=== PATIENT | female | born 1995 | race African-American/Black ===

== ENCOUNTER 2017-06-15 23:43 | Emergency (ER) | payer SELFPAY ==
[2017-06-15 23:51] VITALS: BP 132/81; BMI 27.8
--- NOTE | 2017-06-16 00:32 | DR.GENAD ---
HPI - PCP Primary Care Physician: NFD - Complaint/Symptoms Chief Complaint Doctors Comments: Patient admits to abdominal pain for two days. LMP 11 Chief Complaint:: PAIN PRESSURE IN ABDOMINOPELVIC AREA - Nurses notes reviewed Nurses Notes Review: Yes - Source History Provided: Patient - Mode of Arrival Mode of Arrival: Ambulatory - Timing Onset of Chief Complaint: 06/15/17 PMH - PMH Past Medical History: No Past Surgical History: Yes Surgical History: - Family History History of Family Medical Conditions: No Family Medical History: Hypertension - Social History Does patient currently use any type of tobacco product: Yes Have you used tobacco products in the last 12 months: Yes Type of Tobacco Use: Cigarettes Does any household member use tobacco: No Alcohol Use: None Do you use any recreational Drugs:: No Lives With: Family Lives Where: Home - infectious screening In the last 2 months have you had wt loss of >10#?: NO Have you had fever, night sweats or hemotysis?: No Have you traveled outside the country in the last 6 months?: No Isolation: Standard ROS - Review of Systems Eyes: No Symptoms Reported ENTM: No Symptoms Reported Respiratoy: No Symptoms Reported Cardiovascular: No Symptoms Reported Gastrointestinal/Abdominal: No Symptoms Reported Genitourinary: No Symptoms Reported Neurological: No Symptoms Reported Musculoskeletal: No Symptoms Reported Integumentary: No Symptoms Reported Hematologic/Lymphatic: No Symptoms Reported Endocrine: No Symptoms Reported Psychiatric: No Symptoms Reported All Other Systems: Reviewed and Negative PE - Vital Signs Vitals: Temperature 97.5 F Pulse Rate 72 Respiratory Rate 17 Blood Pressure [Left Arm] 120/74 Blood Pressure [Right Arm] 124/71 Blood Pressure 132/81 O2 Sat by Pulse Oximetry 100 - General General Appearance: Alert, In No Apparent Distress - Head Head Exam: Normal Inspection, Atraumatic - Eyes Eye exam: Normal Appearance, PERRL, EOMI - ENT ENT Exam: Normal Exam External Ear Exam: Normal External Inspection TM/Canal Exam: Bilateral Normal Nose Exam: Normal Nose Exam Mouth Exam: Normal Inspection Throat Exam: Normal Inspection - Neck Neck Exam: Normal Inspection - Chest Chest Inspection: Normal Inspection - Respiratory Respiratory Exam: Normal Lung Sounds Bilat Respiratory Exam: Bilateral Clear to Auscultation - Cardiovascular Cardiovascular Exam: Regular Rate, Normal Rhythm - Abdominal Exam Abdominal Exam: Normal Inspection Abdominal Tenderness: negative: RUQ, RLQ, LUQ, LLQ, Epigastrium, Suprapubic, Diffuse, Mild, Moderate, Severe, Other - Extremities Extremities Exam: Normal Inspection, Full ROM - Back Back Exam: Normal Inspection, Full ROM - Neurologic Neurological Exam: Alert, Oriented X3, CN II-XII Intact - Psychiatric Psychiatric Exam: Normal Affect, Normal Mood - Skin Skin Exam: Warm, Dry, Intact Course - Reevaluation 1st: Unchanged ROR - Labs Reviewed Laboratory Results Reviewed?: Yes (UA: +leuk) Result Diagrams: 06/16/17 00:47 06/16/17 00:47 Laboratory: WBC 9.2 X10^3/uL (3.6-10.0) 06/16/17 00:47 RBC 4.57 X10^6/uL (3.5-5.4) 06/16/17 00:47 Hgb 12.2 g/dL (12.0-16.0) 06/16/17 00:47 Hct 37.1 % (36.0-47.0) 06/16/17 00:47 MCV 81.3 fL (80.0-100.0) 06/16/17 00:47 MCH 26.7 pg (27.0-34.0) L 06/16/17 00:47 MCHC 32.8 g/dL (33.0-35.0) L 06/16/17 00:47 RDW 14.0 % (11.6-16.5) 06/16/17 00:47 Plt Count 80 X10^3/uL (150.0-450.0) L 06/16/17 00:47 MPV 11.7 fL (7.4-11.0) H 06/16/17 00:47 Neut % 59.4 % (42.0-75.0) 06/16/17 00:47 Lymph % 31.7 % (21.0-51.0) 06/16/17 00:47 [place] % 5.8 % (0.0-13.0) 06/16/17 00:47 Eos % 2.7 % (0.9-2.9) 06/16/17 00:47 Baso % 0.4 % (0.2-1.0) 06/16/17 00:47 Neut # 5.5 x10^3/uL (2.2-4.8) H 06/16/17 00:47 Lymph # 2.9 X10^3/uL (1.3-2.9) 06/16/17 00:47 [place] # 0.5 x10^3/uL (0.3-0.8) 06/16/17 00:47 Eos # 0.2 x10^3/uL (0.0-0.2) 06/16/17 00:47 Baso # 0.0 X10^3/uL (0.0-0.1) 06/16/17 00:47 Absolute Nucleated RBC 0.1 /100WBC 06/16/17 00:47 Sodium 145 mmol/L (136-145) 06/16/17 00:47 Corrected Sodium TNP 06/16/17 00:47 Potassium 3.6 mmol/L (3.5-5.1) 06/16/17 00:47 Chloride 110 mmol/L (98-107) H 06/16/17 00:47 Carbon Dioxide 27.3 mmol/L (21-32) 06/16/17 00:47 BUN 7 mg/dL (7-18) 06/16/17 00:47 Creatinine 0.75 mg/dL (0.55-1.02) 06/16/17 00:47 Est GFR (MDRD) Af Amer > 60 (>60) 06/16/17 00:47 Est GFR (MDRD) Non-Af > 60 (>60) 06/16/17 00:47 Glucose 90 mg/dL (65-99) 06/16/17 00:47 Calcium 8.5 mg/dL (8.5-10.1) 06/16/17 00:47 C-Reactive Protein 1.70 mg/L (0-3.0) 06/16/17 00:47 Specimen Type Clean catch urine 06/16/17 00:40 Urine Color Yellow (YELLOW) 06/16/17 00:40 Urine Appearance Clear (CLEAR) 06/16/17 00:40 Urine pH 6.0 (5.0 - 8.0) 06/16/17 00:40 Ur Specific [place] 1.020 (1.000-1.030) 06/16/17 00:40 Urine Protein Negative (NEGATIVE) 06/16/17 00:40 Urine Glucose (UA) Negative (NEGATIVE) 06/16/17 00:40 Urine Ketones Negative (NEGATIVE) 06/16/17 00:40 Urine Occult Blood 1+ (NEGATIVE) 06/16/17 00:40 Urine Nitrite Negative (NEGATIVE) 06/16/17 00:40 Urine Bilirubin Negative (NEGATIVE) 06/16/17 00:40 Urine Urobilinogen 1+ (NORMAL) 06/16/17 00:40 Ur Leukocyte Esterase 1+ (NEGATIVE) 06/16/17 00:40 Urine RBC Rare /HPF (NEGATIVE) 06/16/17 00:40 Urine WBC 0-2 /HPF (NEGATIVE) 06/16/17 00:40 Ur Squamous Epith Cells Moderate /HPF (NEGATIVE) 06/16/17 00:40 Urine Bacteria Trace /HPF (NEGATIVE) 06/16/17 00:40 Urine Mucus Moderate /HPF (NEGATIVE) 06/16/17 00:40 Ur Culture Indicated? No/not indicated 06/16/17 00:40 - Diagnosis Discharge Problem: UTI (urinary tract infection) Qualifiers: Urinary tract infection type: acute cystitis Hematuria presence: with hematuria Qualified Code(s): N30.01 - Acute cystitis with hematuria - Discharge Plan Condition: Stable - Follow ups/Referrals Follow ups/Referrals: NFD,None [Primary Care Provider] - 3 days - Instructions
[2017-06-16 01:04] LABS: BASOPHILS % (AUTO) 0.4 % (0.2-1.0); EOSINOPHILS # (AUTO) 0.2 x10^3/uL (0.0-0.2); EOSINOPHILS % (AUTO) 2.7 % (0.9-2.9); HEMATOCRIT 37.1 % (36.0-47.0); HEMOGLOBIN 12.2 g/dL (12.0-16.0); LYMPHOCYTES # (AUTO) 2.9 X10^3/uL (1.3-2.9); LYMPHOCYTES % (AUTO) 31.7 % (21.0-51.0); MEAN CORPUSCULAR HEMOGLOBIN 26.7 pg (27.0-34.0); MEAN CORPUSCULAR HGB CONC 32.8 g/dL (33.0-35.0); MEAN CORPUSCULAR VOLUME 81.3 fL (80.0-100.0); MEAN PLATELET VOLUME 11.7 fL (7.4-11.0); MONOCYTES # (AUTO) 0.5 x10^3/uL (0.3-0.8); MONOCYTES % (AUTO) 5.8 % (0.0-13.0); NEUTROPHILS # (AUTO) 5.5 x10^3/uL (2.2-4.8); NEUTROPHILS % (AUTO) 59.4 % (42.0-75.0); PLATELET COUNT 80 X10^3/uL (150.0-450.0); RED BLOOD COUNT 4.57 X10^6/uL (3.5-5.4); WHITE BLOOD COUNT 9.2 X10^3/uL (3.6-10.0)
[2017-06-16 01:07] LABS: BLOOD UREA NITROGEN 7 mg/dL (7-18); CALCIUM 8.5 mg/dL (8.5-10.1); CARBON DIOXIDE 27.3 mmol/L (21-32); CHLORIDE 110 mmol/L (98-107); CREATININE 0.75 mg/dL (0.55-1.02); SODIUM 145 mmol/L (136-145); eGFR BLACK RACES > 60 (>60); eGFR NON BLACK RACES > 60 (>60)
[2017-06-16 01:21] LABS: BILIRUBIN,URINE NEGATIVE (NEGATIVE); BLOOD/HEMOGLOBIN,URINE 1+ (NEGATIVE); GLUCOSE, URINE NEGATIVE (NEGATIVE); KETONES,URINE NEGATIVE (NEGATIVE); LEUKOCYTE ESTERASE ,URINE 1+ (NEGATIVE); NITRITES,URINE NEGATIVE (NEGATIVE); PROTEIN,URINE NEGATIVE (NEGATIVE); UROBILINOGEN,URINE 1+ (NORMAL)
[2017-06-16] MEDS ORDERED: BENTYL CAP 10 MG PO ONE ×2 (01:26→01:27)
[2017-06-16 01:45] LABS: APPEARANCE,URINE CLEAR (CLEAR); BACTERIA,URINE TRACE /HPF (NEGATIVE); COLOR,URINE YELLOW (YELLOW); MUCUS,URINE MODERATE /HPF (NEGATIVE); RBC,URINE RARE /HPF (NEGATIVE); SQUAMOUS EPITHELIAL CELL,UR MODERATE /HPF (NEGATIVE)
== END 2017-06-16 02:36 | disposition home or self-care (01) ==
LOC: ER 23:55
DX: N30.01 Acute cystitis with hematuria (principal)
CPT/HCPCS: 36415; 80048; 81001; 85025; 86140; 99282

== ENCOUNTER 2017-07-15 03:05 | Emergency (ER) | payer SELFPAY ==
[2017-07-15 03:29] VITALS: BP 117/67; BMI 27.3
[2017-07-15 03:31] LABS: BILIRUBIN,URINE NEGATIVE (NEGATIVE); BLOOD/HEMOGLOBIN,URINE 4+ (NEGATIVE); GLUCOSE, URINE NEGATIVE (NEGATIVE); KETONES,URINE NEGATIVE (NEGATIVE); LEUKOCYTE ESTERASE ,URINE 1+ (NEGATIVE); NITRITES,URINE NEGATIVE (NEGATIVE); PROTEIN,URINE NEGATIVE (NEGATIVE); UROBILINOGEN,URINE NORMAL (NORMAL)
[2017-07-15 03:38] LABS: APPEARANCE,URINE CLEAR (CLEAR); COLOR,URINE YELLOW (YELLOW); RBC,URINE 0-3 /HPF (NEGATIVE)
[2017-07-15 03:39] LABS: BACTERIA,URINE TRACE /HPF (NEGATIVE); SQUAMOUS EPITHELIAL CELL,UR MODERATE /HPF (NEGATIVE)
[2017-07-15 03:50] LABS: SERUM PREGNANCY TEST, QUAL POSITIVE >10 mIU/mL
--- NOTE | 2017-07-15 04:08 | DR.GENAD ---
HPI - PCP Primary Care Physician: NFD - Complaint/Symptoms Chief Complaint Doctors Comments: Patient states that she is and starting with light bleeding on yesterday; Today the bleeing is a little more and the cramping is worse. She is a single . She states that she stopped smoking when she got . Chief Complaint:: PT STATES" I TOOK A HOME TEST AND I'M CRAMPING AND BLEEDING". LMP 06/10/17 - Source History Provided: Patient - Mode of Arrival Mode of Arrival: Ambulatory - Timing Onset of Chief Complaint: 07/14/17 PMH - PMH Past Medical History: No Past Surgical History: Yes Surgical History: - Family History History of Family Medical Conditions: Yes Family Medical History: Hypertension - Social History Does any household member use tobacco: Yes Alcohol Use: None Do you use any recreational Drugs:: No Lives With: Family Lives Where: Home - infectious screening In the last 2 months have you had wt loss of >10#?: NO Have you had fever, night sweats or hemotysis?: No Have you traveled outside the country in the last 6 months?: No Isolation: Standard ROS - Review of Systems Eyes: No Symptoms Reported ENTM: No Symptoms Reported Respiratoy: No Symptoms Reported Cardiovascular: No Symptoms Reported Gastrointestinal/Abdominal: No Symptoms Reported Genitourinary: No Symptoms Reported Neurological: No Symptoms Reported Musculoskeletal: No Symptoms Reported Integumentary: No Symptoms Reported Hematologic/Lymphatic: No Symptoms Reported Endocrine: No Symptoms Reported Psychiatric: No Symptoms Reported All Other Systems: Reviewed and Negative PE - Vital Signs Vitals: Temperature 97.4 F Pulse Rate 92 Respiratory Rate 18 Blood Pressure [Left Arm] 120/74 Blood Pressure [Right Arm] 124/71 Blood Pressure 117/67 O2 Sat by Pulse Oximetry 99 - General Limitations: No Limitations General Appearance: Alert, In No Apparent Distress - Head Head Exam: Normal Inspection, Atraumatic - Eyes Eye exam: Normal Appearance, PERRL, EOMI - ENT ENT Exam: Normal Exam External Ear Exam: Normal External Inspection TM/Canal Exam: Bilateral Normal Nose Exam: Normal Nose Exam Mouth Exam: Normal Inspection Throat Exam: Normal Inspection - Neck Neck Exam: Normal Inspection - Chest Chest Inspection: Normal Inspection - Respiratory Respiratory Exam: Normal Lung Sounds Bilat Respiratory Exam: Bilateral Clear to Auscultation - Cardiovascular Cardiovascular Exam: Regular Rate, Normal Rhythm - Abdominal Exam Abdominal Exam: Normal Inspection, Normal Bowel Sounds Abdominal Tenderness: negative: RUQ, RLQ, LUQ, LLQ, Epigastrium, Suprapubic, Diffuse, Mild, Moderate, Severe, Other - Extremities Extremities Exam: Normal Inspection - Back Back Exam: Normal Inspection - Neurologic Neurological Exam: Alert, Oriented X3, CN II-XII Intact - Psychiatric Psychiatric Exam: Normal Affect, Normal Mood - Skin Skin Exam: Warm, Dry, Intact ROR - Labs Reviewed Laboratory: HCG, Qual Positive >10 mIU/mL 07/15/17 03:20 Specimen Type Clean catch urine 07/15/17 03:24 Urine Color Yellow (YELLOW) 07/15/17 03:24 Urine Appearance Clear (CLEAR) 07/15/17 03:24 Urine pH 8.0 (5.0 - 8.0) 07/15/17 03:24 Ur Specific [place] 1.015 (1.000-1.030) 07/15/17 03:24 Urine Protein Negative (NEGATIVE) 07/15/17 03:24 Urine Glucose (UA) Negative (NEGATIVE) 07/15/17 03:24 Urine Ketones Negative (NEGATIVE) 07/15/17 03:24 Urine Occult Blood 4+ (NEGATIVE) 07/15/17 03:24 Urine Nitrite Negative (NEGATIVE) 07/15/17 03:24 Urine Bilirubin Negative (NEGATIVE) 07/15/17 03:24 Urine Urobilinogen Normal (NORMAL) 07/15/17 03:24 Ur Leukocyte Esterase 1+ (NEGATIVE) 07/15/17 03:24 Urine RBC 0-3 /HPF (NEGATIVE) 07/15/17 03:24 Urine WBC 0-3 /HPF (NEGATIVE) 07/15/17 03:24 Ur Squamous Epith Cells Moderate /HPF (NEGATIVE) 07/15/17 03:24 Urine Bacteria Trace /HPF (NEGATIVE) 07/15/17 03:24 Ur Culture Indicated? No/not indicated 07/15/17 03:24 - Discharge Plan Condition: Stable - Follow ups/Referrals Follow ups/Referrals: NFD,None [Primary Care Provider] - 3 days - Instructions
== END 2017-07-15 06:38 | disposition left against medical advice (07) ==
LOC: ER 03:05
DX: O20.9 Hemorrhage in early pregnancy, unspecified (principal)
CPT/HCPCS: 36415; 81001; 84702; 84703; 99282; 99283

== ENCOUNTER 2017-07-20 13:42 | Emergency (ER) | payer SELFPAY ==
[2017-07-20 13:48] VITALS: BP 127/84; BMI 27.3
--- NOTE | 2017-07-29 04:54 | DR.GENAD ---
HPI - PCP Primary Care Physician: DEBORAH - Complaint/Symptoms Chief Complaint:: PATIENT STATED THAT SHE IS BUT IS UNSURE OF HOW FAR ALONE SHE IS AT THIS TIME. SHE STATED THAT SHE HAS BEEN BLEEDING FOR 10 DAYS AND DARK RED WITH CLOTS. PATIENT STATES THAT SHE IS NOT HURTING AT THIS TIME. THE FIRST DAY OR TWO SHE CRAMPED BUT THAT IS ALL. - Source History Provided: Patient - Mode of Arrival Mode of Arrival: Ambulatory - Timing Onset of Chief Complaint: 07/10/17 PMH - PMH Past Medical History: No Past Surgical History: Yes Surgical History: - Family History History of Family Medical Conditions: Yes Family Medical History: Hypertension - Social History Does patient currently use any type of tobacco product: No Have you used tobacco products in the last 12 months: No Type of Tobacco Use: None Does any household member use tobacco: No Alcohol Use: None Do you use any recreational Drugs:: No Lives With: Family Lives Where: Home - infectious screening In the last 2 months have you had wt loss of >10#?: NO Have you had fever, night sweats or hemotysis?: No Have you traveled outside the country in the last 6 months?: No Isolation: Standard PE - Vital Signs Vitals: Pulse Rate 82 Respiratory Rate 20 Blood Pressure [Left Arm] 120/74 Blood Pressure [Right Arm] 124/71 Blood Pressure 127/84 O2 Sat by Pulse Oximetry 97 - Discharge Plan Disposition: LWBS After Triage Condition: Stable - Follow ups/Referrals Follow ups/Referrals: DEBORAH,None [Primary Care Provider] - 3 days - Instructions
== END 2017-07-20 16:12 | disposition left against medical advice (07) ==
LOC: ER 13:59
DX: O46.90 Antepartum hemorrhage, unspecified, unspecified trimester (principal)
CPT/HCPCS: 99281

== ENCOUNTER 2017-10-12 02:10 | Emergency (ER) | payer SELFPAY ==
[2017-10-12 02:15] VITALS: BMI 27.3
--- NOTE | 2017-10-12 03:06 | DR.NAUSEAF ---
HPI - Time Seen Time seen: 03:00 - Primary Care Physician Primary Care Physician: DEBORAH - HPI Comment HPI Comment: DIARRHEA HAVE RESOLVE BUT STILL V/V PERSISTS. PERIOD IS LATE. NO FEVER. NO DYSURIA. - Complaints Chief Complaint Doctors Comments: ABDOMINAL CRAMPING, N/V/D FOR A WEEKS. Chief Complaint:: N/V/D FOR A WEEK. CRAMPY STOMACH - Reviewed Nurses Notes Reviewed: Yes - Source History Provided: Patient - Mode of Arrival Mode of Arrival: Ambulatory - Timing Onset of Chief Complaint: 10/05/17 - Context Onset: Spontaneous Recent: None : Unknown History of: None - Quality Quality: Bilious - Associated Signs and Symptoms Abdominal Pain Quality: Cramping Abdominal Pain Location: RLQ, LLQ, Suprapubic Symptoms: Abdominal Pain PMH - PMH Past Medical History: No Past Surgical History: Yes Surgical History: - Family History History of Family Medical Conditions: Yes Family Medical History: Hypertension - Social History Type of Tobacco Use: Cigarettes Alcohol Use: Rarely Do you use any recreational Drugs:: Yes (THC) Lives With: Family Lives Where: Home - infectious screening Have you traveled outside the country in the last 6 months?: No Isolation: Standard ROS - Review of Systems Constitutional: No Symptoms Reported Eyes: No Symptoms Reported ENTM: No Symptoms Reported Respiratoy: No Symptoms Reported Cardiovascular: No Symptoms Reported Gastrointestinal/Abdominal: Abdominal Pain Neurological: No Symptoms Reported Musculoskeletal: No Symptoms Reported Integumentary: No Symptoms Reported Hematologic/Lymphatic: No Symptoms Reported Endocrine: No Symptoms Reported All Other Systems: Reviewed and Negative PE - Vital Signs Vitals: Temperature 97.2 F Pulse Rate [Left Brachial] 76 Pulse Rate 86 Respiratory Rate 18 Blood Pressure [Left Arm] 123/60 Blood Pressure [Right Arm] 124/71 Blood Pressure 118/61 O2 Sat by Pulse Oximetry 100 - General Limitations: No Limitations General Appearance: Alert - Head Head Exam: Normal Inspection - Eyes Eye exam: Normal Appearance - ENT ENT Exam: Normal External Ear Exam - Neck Neck Exam: Trachea Midline - Chest Chest Inspection: Symmetric Chest Wall Rise - Respiratory Respiratory Exam: Normal Lung Sounds Bilat Respiratory Exam: Bilateral Clear to Auscultation - Cardiovascular Cardiovascular Exam: Regular Rate, Normal Rhythm, Normal Heart Sounds - Abdominal Exam Abdominal Exam: Normal Bowel Sounds, Soft, Tenderness Abdominal Tenderness: RLQ, LLQ - Rectal Rectal Exam: Deferred - External Exam: Female: Deferred : Bimanual Exam (female): Deferred - Extremities Extremities Exam: Normal Inspection - Back Back Exam: Normal Inspection - Neurologic Neurological Exam: Alert, Oriented X3 - Psychiatric Psychiatric Exam: Normal Affect, Normal Mood - Skin Skin Exam: Normal Color MDM - Differential Diagnosis Differential Diagnosis: Considerations may Include:: Bowel Obstruction, Gastritis, Gastroenteritis, , Urinary Tract Infection, Urolithiasis Course - Treatment Treatment: SEE ORDERS. - Education/Counseling Education/Counseling: Patient, Education Educated On: Diagnosis, Needs for Follow Up ROR - Labs Reviewed Laboratory Results Reviewed?: Yes Result Diagrams: 10/12/17 03:14 10/12/17 03:14 Laboratory: WBC 11.1 X10^3/uL (3.6-10.0) H 10/12/17 03:14 RBC 4.52 X10^6/uL (3.5-5.4) 10/12/17 03:14 Hgb 12.0 g/dL (12.0-16.0) 10/12/17 03:14 Hct 36.1 % (36.0-47.0) 10/12/17 03:14 MCV 79.9 fL (80.0-100.0) L 10/12/17 03:14 MCH 26.5 pg (27.0-34.0) L 10/12/17 03:14 MCHC 33.2 g/dL (33.0-35.0) 10/12/17 03:14 RDW 12.8 % (11.6-16.5) 10/12/17 03:14 Plt Count 95 X10^3/uL (150.0-450.0) L 10/12/17 03:14 MPV 11.5 fL (7.4-11.0) H 10/12/17 03:14 Neut % (Auto) 72.5 % (42.0-75.0) 10/12/17 03:14 Lymph % (Auto) 20.6 % (21.0-51.0) L 10/12/17 03:14 [place] % (Auto) 4.8 % (0.0-13.0) 10/12/17 03:14 Eos % (Auto) 1.5 % (0.9-2.9) 10/12/17 03:14 Baso % (Auto) 0.6 % (0.2-1.0) 10/12/17 03:14 Neut # (Auto) 8.0 x10^3/uL (2.2-4.8) H 10/12/17 03:14 Lymph # (Auto) 2.3 X10^3/uL (1.3-2.9) 10/12/17 03:14 [place] # (Auto) 0.5 x10^3/uL (0.3-0.8) 10/12/17 03:14 Eos # (Auto) 0.2 x10^3/uL (0.0-0.2) 10/12/17 03:14 Baso # (Auto) 0.1 X10^3/uL (0.0-0.1) 10/12/17 03:14 Absolute Nucleated RBC 0.0 /100WBC 10/12/17 03:14 Sodium 135 mmol/L (136-145) L 10/12/17 03:14 Corrected Sodium TNP 10/12/17 03:14 Potassium 4.1 mmol/L (3.5-5.1) 10/12/17 03:14 Chloride 103 mmol/L (98-107) 10/12/17 03:14 Carbon Dioxide 21.2 mmol/L (21-32) 10/12/17 03:14 BUN 8 mg/dL (7-18) 10/12/17 03:14 Creatinine 0.49 mg/dL (0.55-1.02) L 10/12/17 03:14 Est GFR (MDRD) Af Amer > 60 (>60) 10/12/17 03:14 Est GFR (MDRD) Non-Af > 60 (>60) 10/12/17 03:14 Glucose 81 mg/dL (65-99) 10/12/17 03:14 Calcium 8.6 mg/dL (8.5-10.1) 10/12/17 03:14 Corrected Calcium TNP 10/12/17 03:14 Total Bilirubin 0.40 mg/dL (0.2-1.0) 10/12/17 03:14 AST 13 Units/L (15-37) L 10/12/17 03:14 ALT 17 Units/L (12-78) 10/12/17 03:14 Alkaline Phosphatase 61 Units/L (46-116) 10/12/17 03:14 Total Protein 8.1 g/dL (6.4-8.2) 10/12/17 03:14 Albumin 3.9 g/dL (3.4-5.0) 10/12/17 03:14 Globulin 4.2 g/dL (2.5-4.5) 10/12/17 03:14 Albumin/Globulin Ratio 0.9 Ratio (1.1-2.1) L 10/12/17 03:14 Amylase 46 Units/L (25-115) 10/12/17 03:14 Lipase 101 Units/L (73-393) 10/12/17 03:14 HCG, Qual Positive >10 mIU/mL 10/12/17 03:14 HCG, Quant 606004 mIU/mL (0-6) H 10/12/17 03:14 Specimen Type Clean catch urine 10/12/17 03:35 Urine Color Yellow (YELLOW) 10/12/17 03:35 Urine Appearance Cloudy (CLEAR) 10/12/17 03:35 Urine pH 6.0 (5.0 - 8.0) 10/12/17 03:35 Ur Specific [place] 1.025 (1.000-1.030) 10/12/17 03:35 Urine Protein 2+ (NEGATIVE) 10/12/17 03:35 Urine Glucose (UA) Negative (NEGATIVE) 10/12/17 03:35 Urine Ketones 4+ (NEGATIVE) 10/12/17 03:35 Urine Occult Blood Negative (NEGATIVE) 10/12/17 03:35 Urine Nitrite Negative (NEGATIVE) 10/12/17 03:35 Urine Bilirubin Negative (NEGATIVE) 10/12/17 03:35 Urine Urobilinogen 1+ (NORMAL) 10/12/17 03:35 Ur Leukocyte Esterase 1+ (NEGATIVE) 10/12/17 03:35 Urine RBC None seen /HPF (NONE SEEN) 10/12/17 03:35 Urine WBC 1-3 /HPF (NONE SEEN) 10/12/17 03:35 Ur Squamous Epith Cells Many /HPF (NEGATIVE) 10/12/17 03:35 Amorphous Sediment 1+ /HPF (NEGATIVE) 10/12/17 03:35 Urine Bacteria Trace /HPF (NEGATIVE) 10/12/17 03:35 Urine Mucus Many /HPF (NEGATIVE) 10/12/17 03:35 Urine Trichomonas Few /HPF (NEGATIVE) 10/12/17 03:35 Ur Culture Indicated? No/not indicated 10/12/17 03:35 - XRAY XRAY Interpreted by: Radiologist XRAY Findings: REPORT DISCUSS WITH PATIENT. - Diagnosis Discharge Problem: Nausea/vomiting in , Abdominal pain during in first trimester Qualifiers: Weeks of gestation: less than 8 weeks Qualified Code(s): Z3A.01 - Less than 8 weeks gestation of - Discharge Plan Disposition: HOME, SELF-CARE Condition: Stable Prescriptions: Promethazine HCl [PHENERGAN TAB 25 MG *] 25 mg PO Q6H PRN #12 tab PRN Reason: Nausea/Vomiting - Follow ups/Referrals Follow ups/Referrals: NFD,None [Primary Care Provider] - 3 days ROSA GREER [STAFF PHYSICIAN] - 2 days - Instructions Instructions: Abdominal Pain During , [id number], First Trimester of , [id number], Nausea and Vomiting, Adult, [id number] Additional Instructions: RETURN TO ED IF WORSE.
[2017-10-12 03:26] LABS: BASOPHILS # (AUTO) 0.1 X10^3/uL (0.0-0.1); BASOPHILS % (AUTO) 0.6 % (0.2-1.0); EOSINOPHILS # (AUTO) 0.2 x10^3/uL (0.0-0.2); EOSINOPHILS % (AUTO) 1.5 % (0.9-2.9); HEMATOCRIT 36.1 % (36.0-47.0); LYMPHOCYTES # (AUTO) 2.3 X10^3/uL (1.3-2.9); LYMPHOCYTES % (AUTO) 20.6 % (21.0-51.0); MEAN CORPUSCULAR HEMOGLOBIN 26.5 pg (27.0-34.0); MEAN CORPUSCULAR HGB CONC 33.2 g/dL (33.0-35.0); MEAN CORPUSCULAR VOLUME 79.9 fL (80.0-100.0); MEAN PLATELET VOLUME 11.5 fL (7.4-11.0); MONOCYTES # (AUTO) 0.5 x10^3/uL (0.3-0.8); MONOCYTES % (AUTO) 4.8 % (0.0-13.0); NEUTROPHILS % (AUTO) 72.5 % (42.0-75.0); PLATELET COUNT 95 X10^3/uL (150.0-450.0); RED BLOOD COUNT 4.52 X10^6/uL (3.5-5.4); RED CELL DISTRIBUTION WIDTH 12.8 % (11.6-16.5); WHITE BLOOD COUNT 11.1 X10^3/uL (3.6-10.0)
[2017-10-12 03:33] LABS: ALANINE AMINOTRANSFERASE 17 Units/L (12-78); ALBUMIN 3.9 g/dL (3.4-5.0); ALKALINE PHOSPHATASE 61 Units/L (46-116); AMYLASE 46 Units/L (25-115); ASPARTATE AMINO TRANSFERASE 13 Units/L (15-37); BLOOD UREA NITROGEN 8 mg/dL (7-18); CALCIUM 8.6 mg/dL (8.5-10.1); CARBON DIOXIDE 21.2 mmol/L (21-32); CHLORIDE 103 mmol/L (98-107); CREATININE 0.49 mg/dL (0.55-1.02); LIPASE 101 Units/L (73-393); SODIUM 135 mmol/L (136-145); TOTAL PROTEIN 8.1 g/dL (6.4-8.2); eGFR BLACK RACES > 60 (>60); eGFR NON BLACK RACES > 60 (>60)
[2017-10-12 03:38] LABS: SERUM PREGNANCY TEST, QUAL POSITIVE >10 mIU/mL
[2017-10-12 04:03] LABS: BILIRUBIN,URINE NEGATIVE (NEGATIVE); BLOOD/HEMOGLOBIN,URINE NEGATIVE (NEGATIVE); GLUCOSE, URINE NEGATIVE (NEGATIVE); KETONES,URINE 4+ (NEGATIVE); LEUKOCYTE ESTERASE ,URINE 1+ (NEGATIVE); NITRITES,URINE NEGATIVE (NEGATIVE); PROTEIN,URINE 2+ (NEGATIVE); UROBILINOGEN,URINE 1+ (NORMAL)
[2017-10-12 04:11] LABS: APPEARANCE,URINE CLOUDY (CLEAR); COLOR,URINE YELLOW (YELLOW)
[2017-10-12 04:12] LABS: AMORPHOUS SEDIMENT,UR 1+ /HPF (NEGATIVE); BACTERIA,URINE TRACE /HPF (NEGATIVE); MUCUS,URINE MANY /HPF (NEGATIVE); RBC,URINE NONE SEEN /HPF (NONE SEEN); SQUAMOUS EPITHELIAL CELL,UR MANY /HPF (NEGATIVE); TRICHOMONAS,URINE FEW /HPF (NEGATIVE)
--- NOTE | 2017-10-12 05:07 | US ---
HISTORY: with nausea and vomiting Study: First trimester OB ultrasound Comparison: None Technique: Multiple grayscale ultrasound images of the pelvis were obtained. Findings: There are 2 viable intrauterine gestations. The gestational sac of baby A measures 3 cm and the yolk sac measures 0.3 cm. [place]-rump length of ba by A is 1.1 cm, compatible with an average gestational age of 7 weeks, 1 day. heart tones of ba by A measure 154 beats per minute. The gestational sac of baby B measures 3 cm and the yolk sac measures 0.5 cm. [place]-rump length of ba by B is 1.1 cm, compatible with an average gestational age of 7 weeks, 1day. heart tones of bab y B measure 159 beats per minute. The right ovary is normal in appearance, measuring 3.0 x 2.6 x 3.2 cm. No color Doppler images of the right ovary were obtained by the sound engineering technician. The left ovary was not identified during the examinati on. No significant free fluid is identified within the pelvis. IMPRESSION: Two viable intrauterine gestations with an average ultrasound age of 7 weeks, 1 day for both gestatio ns, corresponding to an estimated date of delivery of 05/26/2018. No acute abnormality identified, as visualized. Nonvisualization of the left ovary. Normal right ovary. Reported By:
[2017-10-12 05:29] VITALS: BP 123/60
== END 2017-10-12 05:29 | disposition home or self-care (01) ==
LOC: ER 02:10
DX: R11.2 Nausea with vomiting, unspecified (principal); R10.84 Generalized abdominal pain; Z3A.01 Less than 8 weeks gestation of pregnancy
CPT/HCPCS: 36415; 76801; 80053; 81001; 82150; 83690; 84702; 84703; 85025; 99284

== ENCOUNTER 2017-12-15 01:15 | Emergency (ER) | payer SELFPAY ==
[2017-12-15 01:27] VITALS: BMI 27.6
--- NOTE | 2017-12-15 01:31 | DR.GENAD ---
HPI - PCP Primary Care Physician: LEA - HPI Comment HPI Comment: PATIENT DENIES DYSURIA. TWIN HAVE BEING ESTABLISH BY US ON 10/12/2017. DIS HAVE SEX TONIGHT. NO VAGINAL DISCHARGE REPORTED. NO FEVER. - Complaint/Symptoms Chief Complaint Doctors Comments: PATIENT IS 13 WEEKS AND NOTED VAGINAL BLEEDING TONIGHT AND LOWER ABDOMINAL PAIN. Chief Complaint:: COMPLAINTS OF A "GUSH OF BLOOD FROM VAGINA" DUE DATE 05/26/18 , PT STATES SHE DID HAVE SEX PRODUCTION CORRUGATOR AND STILL BLEEDING CURRENTLY. - Nurses notes reviewed Nurses Notes Review: Yes - Source History Provided: Patient - Mode of Arrival Mode of Arrival: Ambulatory - Timing Onset of Chief Complaint: 12/15/17 Came on: Suddenly - Duration Duration: Constant Duration: Hours - Severity Severity: Moderate PMH - PMH Past Medical History: No Past Surgical History: Yes Surgical History: Past Surgical History Comment: 4 SECTIONS - Family History History of Family Medical Conditions: No Family Medical History: Hypertension - Social History Does patient currently use any type of tobacco product: Yes Have you used tobacco products in the last 12 months: Yes Type of Tobacco Use: Cigarettes Does any household member use tobacco: No Alcohol Use: None Do you use any recreational Drugs:: No Lives With: Spouse Lives Where: Home - infectious screening In the last 2 months have you had wt loss of >10#?: NO Have you had fever, night sweats or hemotysis?: No Have you traveled outside the country in the last 6 months?: No Isolation: Standard ROS - Review of Systems Constitutional: No Symptoms Reported Eyes: No Symptoms Reported ENTM: No Symptoms Reported Respiratoy: No Symptoms Reported Cardiovascular: No Symptoms Reported Gastrointestinal/Abdominal: Abdominal Pain Genitourinary: Pain, Bleeding Neurological: No Symptoms Reported Musculoskeletal: No Symptoms Reported Integumentary: No Symptoms Reported Hematologic/Lymphatic: No Symptoms Reported Endocrine: No Symptoms Reported All Other Systems: Reviewed and Negative PE - Vital Signs Vitals: Temperature 98.0 F Pulse Rate [Left Brachial] 76 Pulse Rate 92 Respiratory Rate 16 Blood Pressure [Left Arm] 112/78 Blood Pressure [Right Arm] 124/71 Blood Pressure 113/56 O2 Sat by Pulse Oximetry 99 - General Limitations: No Limitations General Appearance: Alert - Head Head Exam: Normal Inspection - Eyes Eye exam: Normal Appearance - ENT ENT Exam: Normal External Ear Exam External Ear Exam: Normal External Inspection TM/Canal Exam: Bilateral Normal Mouth Exam: Normal Inspection Throat Exam: Normal Inspection - Neck Neck Exam: Normal Inspection - Chest Chest Inspection: Symmetric Chest Wall Rise - Respiratory Respiratory Exam: Normal Lung Sounds Bilat Respiratory Exam: Bilateral Clear to Auscultation - Cardiovascular Cardiovascular Exam: Regular Rate, Normal Rhythm, Normal Heart Sounds - Abdominal Exam Abdominal Exam: Normal Bowel Sounds, Soft, Tenderness Abdominal Tenderness: RLQ, LLQ, Suprapubic - Extremities Extremities Exam: Normal Inspection - Back Back Exam: Normal Inspection - Neurologic Neurological Exam: Alert, Oriented X3 - Psychiatric Psychiatric Exam: Anxious - Skin Skin Exam: Normal Color MDM - Additional Information Additional Information Obtained From: Family - Differential Diagnosis Differential Diagnosis: THRATENED MISCARRIAGE, UTI, ABD PAIN 2ND TRIMESTER, VAG BLEEDING 2ND TRIMES Course - Treatment Treatment: SEE ORDERS. - Education/Counseling Education/Counseling: Patient, Family, Education Educated On: Diagnosis, Needs for Follow Up ROR - Labs Reviewed Laboratory Results Reviewed?: Yes Result Diagrams: 12/15/17 01:46 Laboratory: WBC 12.3 X10^3/uL (3.6-10.0) H 12/15/17 01:46 RBC 3.61 X10^6/uL (3.5-5.4) 12/15/17 01:46 Hgb 9.7 g/dL (12.0-16.0) L 12/15/17 01:46 Hct 28.6 % (36.0-47.0) L 12/15/17 01:46 MCV 79.2 fL (80.0-100.0) L 12/15/17 01:46 MCH 27.0 pg (27.0-34.0) 12/15/17 01:46 MCHC 34.1 g/dL (33.0-35.0) 12/15/17 01:46 RDW 13.7 % (11.6-16.5) 12/15/17 01:46 Plt Count 129 X10^3/uL (150.0-450.0) L 12/15/17 01:46 MPV 11.1 fL (7.4-11.0) H 12/15/17 01:46 Neut % (Auto) 73.2 % (42.0-75.0) 12/15/17 01:46 Lymph % (Auto) 19.7 % (21.0-51.0) L 12/15/17 01:46 [place] % (Auto) 4.8 % (0.0-13.0) 12/15/17 01:46 Eos % (Auto) 2.0 % (0.9-2.9) 12/15/17 01:46 Baso % (Auto) 0.3 % (0.2-1.0) 12/15/17 01:46 Neut # (Auto) 9.0 x10^3/uL (2.2-4.8) H 12/15/17 01:46 Lymph # (Auto) 2.4 X10^3/uL (1.3-2.9) 12/15/17 01:46 [place] # (Auto) 0.6 x10^3/uL (0.3-0.8) 12/15/17 01:46 Eos # (Auto) 0.2 x10^3/uL (0.0-0.2) 12/15/17 01:46 Baso # (Auto) 0.0 X10^3/uL (0.0-0.1) 12/15/17 01:46 Absolute Nucleated RBC 0.0 /100WBC 12/15/17 01:46 HCG, Quant [id number] mIU/mL (0-6) H 12/15/17 01:46 Specimen Type Clean catch urine 12/15/17 02:26 Urine Color Yellow (YELLOW) 12/15/17 02:26 Urine Appearance Slightly hazy (CLEAR) 12/15/17 02:26 Urine pH 8.0 (5.0 - 8.0) 12/15/17 02:26 Ur Specific [place] 1.010 (1.000-1.030) 12/15/17 02:26 Urine Protein 1+ (NEGATIVE) 12/15/17 02:26 Urine Glucose (UA) Negative (NEGATIVE) 12/15/17 02:26 Urine Ketones Negative (NEGATIVE) 12/15/17 02:26 Urine Occult Blood 3+ (NEGATIVE) 12/15/17 02:26 Urine Nitrite Negative (NEGATIVE) 12/15/17 02:26 Urine Bilirubin Negative (NEGATIVE) 12/15/17 02:26 Urine Urobilinogen Normal (NORMAL) 12/15/17 02:26 Ur Leukocyte Esterase 1+ (NEGATIVE) 12/15/17 02:26 Urine RBC 5-10 /HPF (NONE SEEN) 12/15/17 02:26 Urine WBC 5-10 /HPF (NONE SEEN) 12/15/17 02:26 Ur Squamous Epith Cells Rare /HPF (NEGATIVE) 12/15/17 02:26 Urine Bacteria 1+ /HPF (NEGATIVE) 12/15/17 02:26 Urine Mucus Few /HPF (NEGATIVE) 12/15/17 02:26 Ur Culture Indicated? Yes/culture set up 12/15/17 02:26 Blood Type O POSITIVE 12/15/17 01:46 - Diagnosis Discharge Problem: Vaginal bleeding before 22 weeks gestation, Abdominal pain affecting , Threatened miscarriage UTI (urinary tract infection) Qualifiers: Urinary tract infection type: site unspecified Hematuria presence: with hematuria Qualified Code(s): N39.0 - Urinary tract infection, site not specified - Discharge Plan Disposition: HOME, SELF-CARE Condition: Stable Prescriptions: Nitrofurantoin Macro [Macrobid Cap 100 mg Ext Rel] 100 mg PO BID #14 cap - Follow ups/Referrals Follow ups/Referrals: Georgina Henry MD [Primary Care Provider] - 12/15/17 - Instructions Instructions: Abdominal Pain During , [id number], Urinary Tract Infection, Adult, [id number], and Urinary Tract Infection, Pelvic Rest, Vaginal Bleeding During , Second Trimester, [id number] Additional Instructions: RETURN TO ED IF WORSE. SEE OB DR. BURGESS AM.
[2017-12-15 02:09] LABS: BASOPHILS % (AUTO) 0.3 % (0.2-1.0); EOSINOPHILS # (AUTO) 0.2 x10^3/uL (0.0-0.2); HEMATOCRIT 28.6 % (36.0-47.0); HEMOGLOBIN 9.7 g/dL (12.0-16.0); LYMPHOCYTES # (AUTO) 2.4 X10^3/uL (1.3-2.9); LYMPHOCYTES % (AUTO) 19.7 % (21.0-51.0); MEAN CORPUSCULAR HGB CONC 34.1 g/dL (33.0-35.0); MEAN CORPUSCULAR VOLUME 79.2 fL (80.0-100.0); MEAN PLATELET VOLUME 11.1 fL (7.4-11.0); MONOCYTES # (AUTO) 0.6 x10^3/uL (0.3-0.8); MONOCYTES % (AUTO) 4.8 % (0.0-13.0); NEUTROPHILS % (AUTO) 73.2 % (42.0-75.0); PLATELET COUNT 129 X10^3/uL (150.0-450.0); RED BLOOD COUNT 3.61 X10^6/uL (3.5-5.4); RED CELL DISTRIBUTION WIDTH 13.7 % (11.6-16.5); WHITE BLOOD COUNT 12.3 X10^3/uL (3.6-10.0)
[2017-12-15 02:34] LABS: BILIRUBIN,URINE NEGATIVE (NEGATIVE); BLOOD/HEMOGLOBIN,URINE 3+ (NEGATIVE); GLUCOSE, URINE NEGATIVE (NEGATIVE); KETONES,URINE NEGATIVE (NEGATIVE); LEUKOCYTE ESTERASE ,URINE 1+ (NEGATIVE); NITRITES,URINE NEGATIVE (NEGATIVE); PROTEIN,URINE 1+ (NEGATIVE); UROBILINOGEN,URINE NORMAL (NORMAL)
[2017-12-15 02:53] LABS: APPEARANCE,URINE SLIGHTLY HAZY (CLEAR); BACTERIA,URINE 1+ /HPF (NEGATIVE); COLOR,URINE YELLOW (YELLOW); MUCUS,URINE FEW /HPF (NEGATIVE); SQUAMOUS EPITHELIAL CELL,UR RARE /HPF (NEGATIVE)
[2017-12-15] MEDS ORDERED: MACROBID CAP 100 MG EXT REL PO ONE ×2 (03:12→03:14)
[2017-12-15 03:18] VITALS: BP 112/78
== END 2017-12-15 03:18 | disposition home or self-care (01) ==
LOC: ER 01:15
DX: O46.90 Antepartum hemorrhage, unspecified, unspecified trimester (principal); R10.84 Generalized abdominal pain; O20.0 Threatened abortion; N39.0 Urinary tract infection, site not specified; Z3A.14 14 weeks gestation of pregnancy
CPT/HCPCS: 36415; 81001; 84702; 85025; 86900; 86901; 87086; 99283; 99284

== ENCOUNTER 2017-12-21 04:47 | Inpatient (IN) ==
[2017-12-21] MEDS ORDERED: D5 1/2 NS 1000 ML 1,000 ML IV ONE (05:04)
[2017-12-21] MEDS ORDERED: D5 1/2 NS 1000 ML 1,000 ML IV SCH ×2 (05:05→08:00)
[2017-12-21 05:16] VITALS: BMI 27.3
--- NOTE | 2017-12-21 05:20 | DR.VAG ---
HPI - Time Seen Time seen: 05:05 - PCP Primary Care Physician: NONE - Complaint Chief Complaint:: PATIENT IS A AT 16 WEEKS AND 6 DAYS WITH PREVIOUS C/S X4. PATIENT STATES THAT SHE STARTED WITH ABDOMINAL PAIN AROUND 0100 THIS MORNING THAT HAS BECAME WORSE. PATIENT STATES THAT SHE STARTED BLEEDING ABOUT 30 MINUTES PRIOR TO CALLING EMS AND SHE PASSED SEVERAL LARGE CLOTS. Chief Complaint Doctors Comments: Hx. noted per nurse's note. Pt. states she started bleeding again at about 0100 hrs this a.m. She is passing blood clots. She also has associated pelvic and vaginal cramps. Similar episode was noted on 12/15/17, she was treated and released then. That episode was thought to have been triggered by recent sex. She states her last intercourse was 1 week ago. She has been having intermittent vaginal bleeding since onset of this . She denies LBP. Self Treatment fo Chief Complaint: PATIENT STATES THAT SHE WAS SEEN IN ER ON FOR BLEEDING AND WAS DIAGNOSED WITH A UTI. - Reviewed Nurses Notes Review: Yes - Source History Provided: Patient - Mode of Arrival Mode of Arrival: EMS - Timing Onset of Chief Complaint: 12/21/17 PMH - PMH Past Medical History: No Past Surgical History: Yes Surgical History: - Family History History of Family Medical Conditions: No Family Medical History: Hypertension - Social History Does patient currently use any type of tobacco product: Yes Have you used tobacco products in the last 12 months: Yes Type of Tobacco Use: Cigarettes Does any household member use tobacco: Yes Alcohol Use: None Do you use any recreational Drugs:: No Lives With: Family Lives Where: Home - infectious screening In the last 2 months have you had wt loss of >10#?: NO Have you had fever, night sweats or hemotysis?: No Have you traveled outside the country in the last 6 months?: No Isolation: Standard ROS - Review of Systems Constitutional: No Symptoms Reported Eyes: No Symptoms Reported ENTM: No Symptoms Reported Respiratoy: No Symptoms Reported Cardiovascular: No Symptoms Reported Gastrointestinal/Abdominal: No Symptoms Reported Genitourinary: Other (vaginal bleed/passage of blood clots) Neurological: No Symptoms Reported Musculoskeletal: No Symptoms Reported Integumentary: No Symptoms Reported Hematologic/Lymphatic: No Symptoms Reported Endocrine: No Symptoms Reported Psychiatric: No Symptoms Reported All Other Systems: Reviewed and Negative PE - Vital Signs Vitals: Temperature 99.2 F Pulse Rate 81 Respiratory Rate 22 Blood Pressure [Left Arm] 112/78 Blood Pressure [Right Arm] 124/71 Blood Pressure 136/82 O2 Sat by Pulse Oximetry 100 - General Limitations: No Limitations General Appearance: Alert, In Distress (pain related) - Head Head Exam: Normal Inspection - Eyes Eye exam: Normal Appearance - ENT ENT Exam: Normal Exam - Neck Neck Exam: Normal Inspection - Chest Chest Inspection: Normal Inspection, Symmetric Chest Wall Rise - Respiratory Respiratory Exam: Normal Lung Sounds Bilat - Cardiovascular Cardiovascular Exam: Regular Rate, Normal Rhythm, +S1, +S2 - Abdominal Exam Abdominal Exam: Normal Inspection, Normal Bowel Sounds, Soft - Rectal Rectal Exam: Deferred - Genitourinary External Exam: Female: Deferred - Extremities Extremities Exam: Normal Inspection - Neurologic Neurological Exam: Alert, Oriented X3 - Psychiatric Psychiatric Exam: Normal Affect - Skin Skin Exam: Warm, Dry, Intact, Normal Color Course - Reevaluation 1st: Unchanged - Education/Counseling Education/Counseling: Patient, Education, Counseling Educated On: Treatment, Diagnosis, Prognosis, Needs for Follow Up ROR - Labs Reviewed Result Diagrams: 12/21/17 05:00 12/21/17 05:00 Laboratory: WBC 11.0 X10^3/uL (3.6-10.0) H 12/21/17 05:00 RBC 3.76 X10^6/uL (3.5-5.4) 12/21/17 05:00 Hgb 10.3 g/dL (12.0-16.0) L 12/21/17 05:00 Hct 30.2 % (36.0-47.0) L 12/21/17 05:00 MCV 80.4 fL (80.0-100.0) 12/21/17 05:00 MCH 27.5 pg (27.0-34.0) 12/21/17 05:00 MCHC 34.2 g/dL (33.0-35.0) 12/21/17 05:00 RDW 14.3 % (11.6-16.5) 12/21/17 05:00 Plt Count 114 X10^3/uL (150.0-450.0) L 12/21/17 05:00 MPV 11.3 fL (7.4-11.0) H 12/21/17 05:00 Neut % (Auto) 69.7 % (42.0-75.0) 12/21/17 05:00 Lymph % (Auto) 21.8 % (21.0-51.0) 12/21/17 05:00 [place] % (Auto) 5.8 % (0.0-13.0) 12/21/17 05:00 Eos % (Auto) 2.4 % (0.9-2.9) 12/21/17 05:00 Baso % (Auto) 0.3 % (0.2-1.0) 12/21/17 05:00 Neut # (Auto) 7.7 x10^3/uL (2.2-4.8) H 12/21/17 05:00 Lymph # (Auto) 2.4 X10^3/uL (1.3-2.9) 12/21/17 05:00 [place] # (Auto) 0.6 x10^3/uL (0.3-0.8) 12/21/17 05:00 Eos # (Auto) 0.3 x10^3/uL (0.0-0.2) H 12/21/17 05:00 Baso # (Auto) 0.0 X10^3/uL (0.0-0.1) 12/21/17 05:00 Absolute Nucleated RBC 0.0 /100WBC 12/21/17 05:00 Sodium 136 mmol/L (136-145) 12/21/17 05:00 Corrected Sodium TNP 12/21/17 05:00 Potassium 3.6 mmol/L (3.5-5.1) 12/21/17 05:00 Chloride 103 mmol/L (98-107) 12/21/17 05:00 Carbon Dioxide 20.1 mmol/L (21-32) L 12/21/17 05:00 BUN 7 mg/dL (7-18) 12/21/17 05:00 Creatinine 0.56 mg/dL (0.55-1.02) 12/21/17 05:00 Est GFR (MDRD) Af Amer > 60 (>60) 12/21/17 05:00 Est GFR (MDRD) Non-Af > 60 (>60) 12/21/17 05:00 Glucose 92 mg/dL (65-99) 12/21/17 05:00 Calcium 8.6 mg/dL (8.5-10.1) 12/21/17 05:00 Corrected Calcium 9.6 mg/dL (8.5-10.1) 12/21/17 05:00 Total Bilirubin 0.20 mg/dL (0.2-1.0) 12/21/17 05:00 AST 12 Units/L (15-37) L 12/21/17 05:00 ALT 9 Units/L (12-78) L 12/21/17 05:00 Alkaline Phosphatase 67 Units/L (46-116) 12/21/17 05:00 Total Protein 7.2 g/dL (6.4-8.2) 12/21/17 05:00 Albumin 2.8 g/dL (3.4-5.0) L 12/21/17 05:00 Globulin 4.4 g/dL (2.5-4.5) 12/21/17 05:00 Albumin/Globulin Ratio 0.6 Ratio (1.1-2.1) L 12/21/17 05:00 HCG, Quant 890 mIU/mL (0-6) H 12/21/17 05:00 - Diagnosis Discharge Problem: Abdominal pain during in second trimester, Vaginal bleeding before 22 weeks gestation, Threatened miscarriage, demise before 20 weeks with retention of fetus - Discharge Plan Disposition: 05 XFER OTHER Condition: Stable - Follow ups/Referrals - Instructions Additional Notes - Additional Notes Additional Notes: Retroactive review of her HcG serially is as follows: - [id number]. 12/15/17- [id number]. Today- 890
[2017-12-21 05:22] LABS: BASOPHILS % (AUTO) 0.3 % (0.2-1.0); EOSINOPHILS # (AUTO) 0.3 x10^3/uL (0.0-0.2); EOSINOPHILS % (AUTO) 2.4 % (0.9-2.9); HEMATOCRIT 30.2 % (36.0-47.0); HEMOGLOBIN 10.3 g/dL (12.0-16.0); LYMPHOCYTES # (AUTO) 2.4 X10^3/uL (1.3-2.9); LYMPHOCYTES % (AUTO) 21.8 % (21.0-51.0); MEAN CORPUSCULAR HEMOGLOBIN 27.5 pg (27.0-34.0); MEAN CORPUSCULAR HGB CONC 34.2 g/dL (33.0-35.0); MEAN CORPUSCULAR VOLUME 80.4 fL (80.0-100.0); MEAN PLATELET VOLUME 11.3 fL (7.4-11.0); MONOCYTES # (AUTO) 0.6 x10^3/uL (0.3-0.8); MONOCYTES % (AUTO) 5.8 % (0.0-13.0); NEUTROPHILS # (AUTO) 7.7 x10^3/uL (2.2-4.8); NEUTROPHILS % (AUTO) 69.7 % (42.0-75.0); PLATELET COUNT 114 X10^3/uL (150.0-450.0); RED BLOOD COUNT 3.76 X10^6/uL (3.5-5.4); RED CELL DISTRIBUTION WIDTH 14.3 % (11.6-16.5)
[2017-12-21 05:29] LABS: ALANINE AMINOTRANSFERASE 9 Units/L (12-78); ALBUMIN 2.8 g/dL (3.4-5.0); ALKALINE PHOSPHATASE 67 Units/L (46-116); ASPARTATE AMINO TRANSFERASE 12 Units/L (15-37); BLOOD UREA NITROGEN 7 mg/dL (7-18); CALCIUM 8.6 mg/dL (8.5-10.1); CARBON DIOXIDE 20.1 mmol/L (21-32); CHLORIDE 103 mmol/L (98-107); COR CA(FOR HYPOALB) 9.6 mg/dL (8.5-10.1); CREATININE 0.56 mg/dL (0.55-1.02); SODIUM 136 mmol/L (136-145); TOTAL PROTEIN 7.2 g/dL (6.4-8.2); eGFR NON BLACK RACES > 60 (>60)
[2017-12-21 06:05] LABS: BILIRUBIN,URINE NEGATIVE (NEGATIVE); BLOOD/HEMOGLOBIN,URINE 5+ (NEGATIVE); GLUCOSE, URINE NEGATIVE (NEGATIVE); KETONES,URINE NEGATIVE (NEGATIVE); LEUKOCYTE ESTERASE ,URINE 1+ (NEGATIVE); NITRITES,URINE NEGATIVE (NEGATIVE); PROTEIN,URINE NEGATIVE (NEGATIVE); UROBILINOGEN,URINE NORMAL (NORMAL)
[2017-12-21 06:13] LABS: AMORPHOUS SEDIMENT,UR 3+ /HPF (NEGATIVE); APPEARANCE,URINE HAZY (CLEAR); BACTERIA,URINE TRACE /HPF (NEGATIVE); COLOR,URINE YELLOW (YELLOW); RBC,URINE 20-30 /HPF (NONE SEEN); SQUAMOUS EPITHELIAL CELL,UR FEW /HPF (NEGATIVE)
--- NOTE | 2017-12-21 06:20 | US ---
History: Twin with vaginal bleeding and pain Study: Obstetrical ultrasound Comparison: October 12, 2017 Findings: There is a twin with no cardiac activity and no amniotic fluid. There is no body movement. Measurements of both babies are consistent with a 14 week 4 day age showing a appropriate growth sinc e the prior examination. Impression: Intrauterine demise of twin Reported By:
[2017-12-21] MEDS ORDERED: NUBAIN INJ 200 MG VIAL MULTIDOSE IVP PRN (07:38)
[2017-12-21] MEDS ORDERED: PHENERGAN INJ 25 MG ONE (07:43)
[2017-12-21] MEDS ORDERED: NUBAIN INJ 10 ONE (07:44)
[2017-12-21] MEDS ORDERED: CYTOTEC SL PRN (07:44)
[2017-12-21] MEDS ORDERED: NS 100 ML IV 100 ML IV ONE (07:47)
[2017-12-21] MEDS ORDERED: AMPICILLIN VIAL 2 GRAM ONE (07:48)
[2017-12-21] MEDS ORDERED: ANCEF VIAL 1 GRAM ONE (07:49)
[2017-12-21] MEDS: DILAUDID INJ IVP PRN ×2 (08:00→08:35)
[2017-12-21] MEDS ORDERED: PHENERGAN INJ 25 MG IV PRN ×3 (08:00→14:20)
[2017-12-21] MEDS ORDERED: ANCEF VIAL 1 GRAM 1 G in NS 100 ML IV + SPIKE MINIBAG* 100 ML IV SCH (08:00)
[2017-12-21] MEDS ORDERED: LR 1000 ML IV 1,000 ML IV ONE ×3 (08:59→09:50)
[2017-12-21] MEDS ORDERED: FENTANYL INJ 100 mcg ONE (08:59)
[2017-12-21] MEDS ORDERED: NAROPIN EPIDURAL 0.2% + FENTANYL 90MCG 60 ML EPI ONE (09:00)
[2017-12-21] MEDS ORDERED: FENTANYL INJ 100 mcg EPI ONE (09:08)
[2017-12-21] MEDS ORDERED: NAROPIN EPIDURAL 0.2% + FENTANYL 90MCG EPI SCH (10:00)
[2017-12-21] MEDS ORDERED: D5LR 1L W PITOCIN 10 UNITS/L 10 UNITS/1,000 ML BAG IV ONE (11:47)
[2017-12-21] MEDS ORDERED: PITOCIN ONE (11:47)
[2017-12-21] MEDS ORDERED: MOTRIN TAB 800 MG PO PRN ×2 (12:36→14:20)
--- NOTE | 2017-12-21 12:36 | DR.OB ---
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 Placenta intact and clamped. Second delivered spontaneously at 5cm, in intact sac with complete placenta. Placenta of first grasped with forceps and delivered completely/intact. No CVX / vaginal / perineal tears. Both infants and placenta appeared unremarkable and sent for pathology. EBL= 100cc.
[2017-12-21] MEDS ORDERED: D5 1/2 NS 1000 ML 1,000 ML with PITOCIN 20 UNITS IV SCH ×2 (13:00)
[2017-12-21] MEDS ORDERED: DERMOPLAST SPRAY TOP PRN (14:20)
[2017-12-21] MEDS ORDERED: MILK OF MAGNESIA PO PRN (14:20)
[2017-12-21] MEDS ORDERED: ADACEL or BOOSTRIX TDaP VACCINE IM ONE (14:20)
[2017-12-21] MEDS ORDERED: AMBIEN PO PRN (14:20)
[2017-12-21] MEDS: D5 1/2 NS 1L W PITOCIN 20 UNITS/L 20 UNITS/1,000 ML BAG IV ONE (20:29)
[2017-12-21] MEDS: ZANTAC PO SCH (20:29)
[2017-12-21] MEDS: D5 1/2 NS 1000 ML 1,000 ML with PITOCIN 20 UNITS IV SCH ×2 (20:30)
[2017-12-22] MEDS: D5 1/2 NS 1000 ML 1,000 ML with PITOCIN 20 UNITS IV SCH ×2 (05:42)
[2017-12-22 05:49] LABS: HEMATOCRIT 24.7 % (36.0-47.0); HEMOGLOBIN 8.4 g/dL (12.0-16.0)
[2017-12-22] MEDS: DEPO-PROVERA CONTRACEPTIVE INJ IM ONE ×2 (07:11→10:46)
[2017-12-22] MEDS: D5 1/2 NS 1L W PITOCIN 20 UNITS/L 20 UNITS/1,000 ML BAG IV ONE (07:12)
[2017-12-22] MEDS: ZANTAC PO SCH (08:28)
[2017-12-22] MEDS ORDERED: PRENATAL PLUS PO SCH (09:00)
[2017-12-22 09:38] VITALS: BP 120/69
[2017-12-22] MEDS ORDERED: DEPO-PROVERA CONTRACEPTIVE INJ IM ONE (10:46)
== END 2017-12-22 11:30 | disposition home or self-care (01) | DRG 770 ==
LOC: ER 04:47 → LD 07:20 → ER 07:22 → MED/SURG 14:19
PROVIDERS: ADMIT Specialist; ATTEND Specialist
DX: O02.1 Missed abortion; Z3A.17 17 weeks gestation of pregnancy; O09.33 Supervision of pregnancy with insufficient antenatal care, third trimester; Z37.4 Twins, both stillborn
CPT/HCPCS: 36415; 59409; 76815; 80053; 80307; 81001; 84702; 85014; 85018; 85025; 86592; 86701; 86703; 86850; 86900; 86901; 96365; 96367; 99282; 99284; A4216; A4222; S0197; G0434; J0290; J0690; J1050; J1170; J2300; J2550; J2590; J3010; J7050; J7120; S5010

== ENCOUNTER 2019-10-18 21:19 | Inpatient (IN) ==
[~2019-10-18 21:19] MED LIST: EPHEDRINE SULFATE INJ ONE; MARCAINE SPINAL ONE; NS IRRIGATION 500 ML IR ONE; PITOCIN ONE
[2019-10-18 22:00] LABS: AMNISURE ROM TEST THERE IS A RUPTURE (NO RUPTURE)
[2019-10-18 22:17] LABS: BILIRUBIN,URINE NEGATIVE (NEGATIVE); BLOOD/HEMOGLOBIN,URINE 3+ (NEGATIVE); GLUCOSE, URINE 1+ (NEGATIVE); KETONES,URINE 4+ (NEGATIVE); LEUKOCYTE ESTERASE ,URINE 1+ (NEGATIVE); NITRITES,URINE NEGATIVE (NEGATIVE); PROTEIN,URINE 4+ (NEGATIVE); UROBILINOGEN,URINE NORMAL (NORMAL)
[2019-10-18 22:28] LABS: APPEARANCE,URINE HAZY (CLEAR); BACTERIA,URINE NEGATIVE /HPF (NEGATIVE); COLOR,URINE DARK YELLOW (YELLOW); SQUAMOUS EPITHELIAL CELL,UR FEW /HPF (NEGATIVE)
[2019-10-18 22:29] LABS: GRANULAR CASTS,URINE RARE /LPF (NEGATIVE)
[2019-10-18] MEDS ORDERED: LR 1000 ML IV 1,000 ML IV ONE (22:47)
[2019-10-18] MEDS ORDERED: ANCEF 1 GRAM IV PREMIX* 1 G/50 ML BAG IV ONE (22:48)
--- NOTE | 2019-10-18 23:03 | US ---
Ultrasound pelvisIndication: Vaginal bleeding. EGA is 33 weeks 1 day TECHNIQUEDynamic grayscale and Doppler imaging through the pelvis using a transabdominal approachFINDINGSThere is a single fetus in cephalic position with a posteriorly located placenta. Heart rate is 153 beats per minute.Measurements are as follows:BPD: 8.3 centimetersAC: 29.6 centimetersHC: 28.3 centimetersFL: 6.9 centimeterEstimated gestational age is 30 weeks, 3 days . Estimated weight is 2281 grams. Amniotic fluid is globally decreased in volume.Limited evaluation of anatomy shows no convincing acute abnormality, this is limited.IMPRESSION1. Oligohydramnios. Underlying congenital abnormality not excluded. Premature rupture of membranes not excluded. High risk obstetrics consultation recommended2. Single living intrauterine with a heart rate of 153 beats per minute, measuring 33 weeks, 3 days by ultrasound.Electronically signed by: JACQUI BUENO (Oct 18, 2019 23:02:36)
[2019-10-18] MEDS ORDERED: ANCEF VIAL 1 GRAM IVP ONE (23:10)
[2019-10-18] MEDS ORDERED: DILAUDID INJ ONE (23:11)
[2019-10-18 23:49] LABS: BASOPHILS # (AUTO) 0.1 X10^3/uL (0.0-0.1); BASOPHILS % (AUTO) 0.3 % (0.2-1.0); HEMATOCRIT 31.9 % (36.0-47.0); HEMOGLOBIN 10.6 g/dL (12.0-16.0); LYMPHOCYTES # (AUTO) 0.9 X10^3/uL (1.3-2.9); LYMPHOCYTES % (AUTO) 1.9 % (21.0-51.0); MEAN CORPUSCULAR HEMOGLOBIN 27.4 pg (27.0-34.0); MEAN CORPUSCULAR HGB CONC 33.2 g/dL (33.0-35.0); MEAN CORPUSCULAR VOLUME 82.5 fL (80.0-100.0); MEAN PLATELET VOLUME 10.8 fL (7.4-11.0); MONOCYTES # (AUTO) 1.1 x10^3/uL (0.3-0.8); MONOCYTES % (AUTO) 2.4 % (0.0-13.0); NEUTROPHILS % (AUTO) 95.4 % (42.0-75.0); PLATELET COUNT 67 X10^3/uL (150.0-450.0); RED BLOOD COUNT 3.86 X10^6/uL (3.5-5.4); RED CELL DISTRIBUTION WIDTH 13.1 % (11.6-16.5)
[2019-10-18 23:51] LABS: BLOOD UREA NITROGEN 11 mg/dL (7-18); CALCIUM 7.8 mg/dL (8.5-10.1); CHLORIDE 97 mmol/L (98-107); CREATININE 0.91 mg/dL (0.55-1.02); SODIUM 132 mmol/L (136-145); eGFR NON BLACK RACES > 60 (>60)
[2019-10-19 00:09] LABS: WHITE BLOOD COUNT 45.1 X10^3/uL (3.6-10.0)
[2019-10-19] MEDS ORDERED: LR 1000 ML IV 1,000 ML IV ONE (00:39)
[2019-10-19] MEDS ORDERED: DILAUDID INJ IVP PRN (00:52)
[2019-10-19] MEDS ORDERED: PHENERGAN INJ 25 MG IM PRN (00:52)
[2019-10-19] MEDS ORDERED: BENADRYL INJ 50 MG VIAL IVP PRN (00:52)
[2019-10-19] MEDS ORDERED: ZOFRAN INJ 4 MG VIAL IVP PRN (00:52)
[2019-10-19] MEDS ORDERED: REGLAN INJ 10 MG VIAL IVP PRN (00:52)
[2019-10-19] MEDS ORDERED: PITOCIN ONE (01:22)
[2019-10-19] MEDS ORDERED: ZOSYN VIAL 3.375 GRAMS IV ONE (01:33)
[2019-10-19] MEDS ORDERED: NS 100 ML IV + SPIKE MINIBAG* 100 ML IV ONE (01:34)
[2019-10-19] MEDS ORDERED: NS 1/2 + KCL 20 MEQ/L 1,000 ML IV ONE (01:34)
[2019-10-19] MEDS ORDERED: TYLENOL 325 MG TAB PO PRN (01:39)
[2019-10-19] MEDS ORDERED: KCL IV ONE (01:41)
[2019-10-19] MEDS ORDERED: NS IV ONE (01:41)
[2019-10-19] MEDS ORDERED: PITOCIN IV ONE (01:41)
[2019-10-19] MEDS ORDERED: D5 1/2 NS 1000 ML 1,000 ML with PITOCIN 20 UNITS IV SCH ×2 (02:00)
[2019-10-19] MEDS: ZOSYN VIAL 3.375 GRAMS 3.375 G in NS 100 ML IV + SPIKE MINIBAG* 100 ML IV SCH ×3 (02:15→19:11)
[2019-10-19] MEDS: NS + KCL 20 MEQ/L 1,000 ML IV SCH ×2 (03:52→13:50)
[2019-10-19 05:33] LABS: ANISOCYTOSIS 1+; BAND NEUTROPHILS % 27 % (0-10); HYPOCHROMASIA 1+; MICROCYTOSIS 1+; PLATELET MORPHOLOGY COMMENT NORMAL (NORMAL)
[2019-10-19 05:45] LABS: HEMATOCRIT 28.9 % (36.0-47.0); HEMOGLOBIN 9.6 g/dL (12.0-16.0)
[2019-10-19] MEDS: MYLICON TAB 80 MG CHEW PO PRN (09:30)
[2019-10-19] MEDS: PRENATAL PLUS PO SCH (09:30)
[2019-10-19] MEDS: MAGNESIUM SULFATE 1 GRAM/100 mL PREMIX 1 GM/100 ML BAG IV PRN ×2 (16:04→17:43)
[2019-10-19] MEDS: MOTRIN TAB 800 MG PO PRN (20:00)
[2019-10-19] MEDS ORDERED: MAALOX or MYLANTA PO PRN (22:21)
[2019-10-20] MEDS: ZOSYN VIAL 3.375 GRAMS 3.375 G in NS 100 ML IV + SPIKE MINIBAG* 100 ML IV SCH ×3 (02:30→18:49)
[2019-10-20] MEDS: NS + KCL 20 MEQ/L 1,000 ML IV SCH ×5 (03:51→22:42)
[2019-10-20] MEDS: MOTRIN TAB 800 MG PO PRN (04:26)
[2019-10-20] MEDS: MYLICON TAB 80 MG CHEW PO PRN ×2 (04:27→22:44)
[2019-10-20 05:53] LABS: BASOPHILS # (AUTO) 0.1 X10^3/uL (0.0-0.1); BASOPHILS % (AUTO) 0.3 % (0.2-1.0); EOSINOPHILS # (AUTO) 0.2 x10^3/uL (0.0-0.2); EOSINOPHILS % (AUTO) 0.7 % (0.9-2.9); HEMATOCRIT 28.2 % (36.0-47.0); HEMOGLOBIN 9.4 g/dL (12.0-16.0); LYMPHOCYTES # (AUTO) 2.1 X10^3/uL (1.3-2.9); LYMPHOCYTES % (AUTO) 6.6 % (21.0-51.0); MEAN CORPUSCULAR HEMOGLOBIN 27.7 pg (27.0-34.0); MEAN CORPUSCULAR HGB CONC 33.5 g/dL (33.0-35.0); MEAN CORPUSCULAR VOLUME 82.8 fL (80.0-100.0); MEAN PLATELET VOLUME 11.3 fL (7.4-11.0); MONOCYTES # (AUTO) 1.3 x10^3/uL (0.3-0.8); NEUTROPHILS # (AUTO) 27.9 x10^3/uL (2.2-4.8); NEUTROPHILS % (AUTO) 88.4 % (42.0-75.0); PLATELET COUNT 80 X10^3/uL (150.0-450.0); RED BLOOD COUNT 3.41 X10^6/uL (3.5-5.4); RED CELL DISTRIBUTION WIDTH 13.4 % (11.6-16.5)
[2019-10-20 06:10] LABS: ALANINE AMINOTRANSFERASE 8 Units/L (12-78); ALBUMIN 1.8 g/dL (3.4-5.0); ALKALINE PHOSPHATASE 79 Units/L (46-116); ASPARTATE AMINO TRANSFERASE 14 Units/L (15-37); BLOOD UREA NITROGEN 9 mg/dL (7-18); CALCIUM 7.5 mg/dL (8.5-10.1); CARBON DIOXIDE 22.3 mmol/L (21-32); CHLORIDE 105 mmol/L (98-107); COR CA(FOR HYPOALB) 9.3 mg/dL (8.5-10.1); CREATININE 0.64 mg/dL (0.55-1.02); MAGNESIUM 2.5 mg/dL (1.7-2.9); SODIUM 136 mmol/L (136-145); TOTAL PROTEIN 5.8 g/dL (6.4-8.2); WHITE BLOOD COUNT 31.5 X10^3/uL (3.6-10.0); eGFR NON BLACK RACES > 60 (>60)
[2019-10-20 06:11] LABS: BAND NEUTROPHILS % 8 % (0-10); HYPOCHROMASIA SLIGHT; PLATELET MORPHOLOGY COMMENT NORMAL (NORMAL)
[2019-10-20] MEDS ORDERED: NS 100 ML IV 100 ML with VENOFER 400 MG IV NR ×2 (08:42)
[2019-10-20] MEDS: PERCOCET TAB 5/325 MG PO PRN ×2 (09:44→22:42)
[2019-10-20] MEDS: PRENATAL PLUS PO SCH (09:44)
[2019-10-20] MEDS ORDERED: K-DUR TAB 20 MEQ PO PRN (14:21)
[2019-10-20] MEDS ORDERED: MAGNESIUM SULFATE 1 GRAM/100 mL PREMIX 1 GM/100 ML BAG IV PRN (14:21)
[2019-10-20] MEDS ORDERED: POTASSIUM CHL 40 MEQ/NS 0.45% 500 ML IV PRN (14:21)
[2019-10-20] MEDS ORDERED: POTASSIUM CHLORIDE LIQ 20 MEQ UDC PO PRN (14:21)
[2019-10-20] MEDS ORDERED: KLOR-CON PO PRN (14:21)
[2019-10-20] MEDS ORDERED: POTASSIUM CHL 60 MEQ/NS 0.45% 500 ML IV PRN (14:21)
[2019-10-20] MEDS ORDERED: K-RIDER 10 MEQ/NS 100 ML 10 MEQ/100 ML BAG IV PRN (14:21)
[2019-10-20] MEDS ORDERED: MICRO K EXTEN CAP 10 MEQ PO PRN (14:21)
[2019-10-20] MEDS ORDERED: K-DUR TAB 20 MEQ PO ONE (14:24)
[2019-10-21] MEDS: ZOSYN VIAL 3.375 GRAMS 3.375 G in NS 100 ML IV + SPIKE MINIBAG* 100 ML IV SCH (02:20)
[2019-10-21] MEDS: NS + KCL 20 MEQ/L 1,000 ML IV SCH (04:40)
[2019-10-21] MEDS: MYLICON TAB 80 MG CHEW PO PRN (05:45)
[2019-10-21 06:18] LABS: BASOPHILS # (AUTO) 0.1 X10^3/uL (0.0-0.1); BASOPHILS % (AUTO) 0.5 % (0.2-1.0); EOSINOPHILS # (AUTO) 0.1 x10^3/uL (0.0-0.2); EOSINOPHILS % (AUTO) 0.6 % (0.9-2.9); HEMATOCRIT 27.3 % (36.0-47.0); HEMOGLOBIN 9.1 g/dL (12.0-16.0); LYMPHOCYTES # (AUTO) 2.6 X10^3/uL (1.3-2.9); MEAN CORPUSCULAR HEMOGLOBIN 27.5 pg (27.0-34.0); MEAN CORPUSCULAR HGB CONC 33.5 g/dL (33.0-35.0); MEAN PLATELET VOLUME 10.9 fL (7.4-11.0); MONOCYTES # (AUTO) 0.9 x10^3/uL (0.3-0.8); MONOCYTES % (AUTO) 4.6 % (0.0-13.0); NEUTROPHILS # (AUTO) 16.1 x10^3/uL (2.2-4.8); NEUTROPHILS % (AUTO) 81.3 % (42.0-75.0); PLATELET COUNT 99 X10^3/uL (150.0-450.0); RED BLOOD COUNT 3.33 X10^6/uL (3.5-5.4); RED CELL DISTRIBUTION WIDTH 13.3 % (11.6-16.5)
[2019-10-21 06:28] LABS: ALANINE AMINOTRANSFERASE 10 Units/L (12-78); ALBUMIN 1.7 g/dL (3.4-5.0); ALKALINE PHOSPHATASE 57 Units/L (46-116); ASPARTATE AMINO TRANSFERASE 14 Units/L (15-37); BLOOD UREA NITROGEN 7 mg/dL (7-18); CALCIUM 7.3 mg/dL (8.5-10.1); CARBON DIOXIDE 23.4 mmol/L (21-32); CHLORIDE 107 mmol/L (98-107); COR CA(FOR HYPOALB) 9.1 mg/dL (8.5-10.1); CREATININE 0.53 mg/dL (0.55-1.02); MAGNESIUM 1.8 mg/dL (1.7-2.9); SODIUM 138 mmol/L (136-145); TOTAL PROTEIN 5.5 g/dL (6.4-8.2); eGFR NON BLACK RACES > 60 (>60)
[2019-10-21 06:37] LABS: BAND NEUTROPHILS % 4 % (0-10); MYELOCYTES % 2; PLATELET MORPHOLOGY COMMENT NORMAL (NORMAL)
[2019-10-21 06:40] LABS: WHITE BLOOD COUNT 19.8 X10^3/uL (3.6-10.0)
[2019-10-21 06:41] LABS: HYPOCHROMASIA SLIGHT
[2019-10-21 07:55] VITALS: BP 103/65
== END 2019-10-21 09:20 | disposition home or self-care (01) | DRG 784 ==
LOC: ER 21:29 → LD 22:58 → MED/SURG 10-19 01:24
PROVIDERS: ADMIT Obstetrics & Gynecology Obstetrics; ATTEND Obstetrics & Gynecology Obstetrics
DX: Z3A.33 33 weeks gestation of pregnancy; O34.211 Maternal care for low transverse scar from previous cesarean delivery; O42.913 Preterm premature rupture of membranes, unspecified as to length of time between rupture and onset of labor, third trimester; O20.8 Other hemorrhage in early pregnancy; N85.8 Other specified noninflammatory disorders of uterus; O60.14X0 Preterm labor third trimester with preterm delivery third trimester, not applicable or unspecified; O23.43 Unspecified infection of urinary tract in pregnancy, third trimester; Z37.0 Single live birth
CPT/HCPCS: 36415; 51701; 76815; 80048; 80053; 80307; 81001; 83735; 84112; 85014; 85018; 85025; 86592; 86850; 86900; 86901; 87040; 87086; 96365; 96374; 99284; A4216; A4222; J0690; J1170; J1756; J2543; J2590; J3475; J3490; J7030; J7050; J7120; S0197